=== PATIENT | male | born 1960 | race Caucasian/White ===

== ENCOUNTER 2017-07-29 14:18 | Inpatient (IN) | payer OTHER ==
[~2017-07-29] VITALS: Ht 162.6 cm; Wt 83.6 kg
[2017-07-29 16:02] LABS: BASOPHIL % 0.5 % (0-2); PLATELET COUNT 262 x10^3mcL (130-400); RED CELL DISTRIBUTION WIDTH 13.7 % (11.5-14.5)
[2017-07-29 16:16] LABS: CALCIUM 9.2 mg/dL (8.5-10.1); CARBON DIOXIDE 27.5 mmol/L (21-32); CHLORIDE SERUM 102 mmol/L (98-107); CREATININE SERUM 1.2 mg/dL (0.7-1.3); GFR1 > 60 mL/min; GLUCOSE SERUM 106 mg/dL (74-106); POTASSIUM SERUM 4.7 mmol/L (3.5-5.1); SODIUM SERUM 141 mmol/L (136-145)
[2017-07-29 16:21] LABS: ALBUMIN 4.4 g/dL (3.4-5.0); ALKALINE PHOSPHATASE 122 U/L (46-116); ALT/SGPT 27 U/L (16-63); AST/SGOT 20 U/L (15-37); BILIRUBIN TOTAL 0.7 mg/dL (0.20-1.00); LIPASE 147 IU/L (73-393)
[2017-07-29 17:12] LABS: UA SPECIFIC GRAVITY 1.025 (1.005-1.035); microscopic required? YES; urine erythrocyte NEGATIVE (NEGATIVE)
[2017-07-29] MEDS ORDERED: LIPITOR40 MG (17:49)
[2017-07-29] MEDS ORDERED: METFORMIN HYDR500 M1 (17:49)
[2017-07-29] MEDS ORDERED: FLUOXETINE40 MG (17:49)
[2017-07-29] MEDS ORDERED: LISINOPRIL2.5 MG (17:50)
[2017-07-29] MEDS ORDERED: L40I (17:50)
[2017-07-29 18:31] LABS: AMPHETAMINE QUAL UR POSITIVE (NEG <=1000)
[2017-07-29] MEDS ORDERED: [UNRECOGNIZED DRUG - OTHER] (18:31)
[2017-07-29 18:36] LABS: PHOSPHOROUS 2.7 mg/dL (2.5-4.9)
[2017-07-29 18:41] LABS: CHOLESTEROL/HDL RATIO 2.8
[2017-07-29 19:18] VITALS: BP 151/89
[2017-07-29 19:24] VITALS: BP 151/83
[2017-07-29] MEDS ORDERED: METFORMIN HCL500 MG PO (20:29)
[2017-07-29] MEDS ORDERED: ATORVASTATIN CA40 M1 PO (20:31)
[2017-07-29] MEDS ORDERED: POTASSIUM CHLOR8 ME1 PO (20:31)
[2017-07-29] MEDS ORDERED: VITAMIN D50000 I4 PO (20:32)
[2017-07-29] MEDS ORDERED: FUROSEMIDE40 MG PO (20:33)
[2017-07-29] MEDS ORDERED: CARVEDILOL3.125 M1 PO (20:33)
[2017-07-29] MEDS ORDERED: FLUOXETINE40 MG PO (20:34)
[2017-07-29] MEDS ORDERED: ZESTRIL20 MG PO (20:35)
[2017-07-29 21:09] VITALS: BP 160/87
[2017-07-30 05:24] VITALS: BP 122/74
[2017-07-30 06:41] LABS: CALCIUM 8.6 mg/dL (8.5-10.1); CARBON DIOXIDE 28.1 mmol/L (21-32); CHLORIDE SERUM 107 mmol/L (98-107); CREATININE SERUM 1.2 mg/dL (0.7-1.3); GFR1 > 60 mL/min; GLUCOSE SERUM 76 mg/dL (74-106); SODIUM SERUM 143 mmol/L (136-145)
[2017-07-30 06:44] LABS: BASOPHIL % 0.7 % (0-2); PLATELET COUNT 205 x10^3mcL (130-400); RED CELL DISTRIBUTION WIDTH 14.2 % (11.5-14.5)
[2017-07-30 09:25] VITALS: BP 103/58
[2017-07-30 11:05] VITALS: Ht 162.6 cm; Wt 83.6 kg
[2017-07-30 12:40] VITALS: BP 133/87
[2017-07-30 17:10] VITALS: BP 121/70
[2017-07-30 21:06] VITALS: BP 120/62
[2017-07-31 05:32] VITALS: BP 122/62
[2017-07-31 07:02] LABS: BASOPHIL % 0.6 % (0-2); PLATELET COUNT 180 x10^3mcL (130-400); RED CELL DISTRIBUTION WIDTH 13.9 % (11.5-14.5)
[2017-07-31 07:12] LABS: CALCIUM 7.8 mg/dL (8.5-10.1); CARBON DIOXIDE 24.9 mmol/L (21-32); CHLORIDE SERUM 108 mmol/L (98-107); CREATININE SERUM 1.1 mg/dL (0.7-1.3); GFR1 > 60 mL/min; GLUCOSE SERUM 105 mg/dL (74-106); MAGNESIUM 1.8 mg/dL (1.8-2.4); PHOSPHOROUS 2.8 mg/dL (2.5-4.9); POTASSIUM SERUM 3.7 mmol/L (3.5-5.1); SODIUM SERUM 141 mmol/L (136-145)
[2017-07-31 10:26] VITALS: BP 122/76
[2017-07-31 13:10] VITALS: BP 124/70
== END 2017-07-31 14:30 | disposition left against medical advice (07) | DRG 52 ==
LOC: ED 14:18 → DU 17:45
PROVIDERS: Emergency Medicine; Family Medicine
DX: G92 Toxic encephalopathy (principal); N17.0 Acute kidney failure with tubular necrosis; E11.65 Type 2 diabetes mellitus with hyperglycemia; G90.8 Other disorders of autonomic nervous system; M62.82 Rhabdomyolysis; I69.351 Hemiplegia and hemiparesis following cerebral infarction affecting right dominant side; I10 Essential (primary) hypertension; E78.5 Hyperlipidemia, unspecified; E78.00 Pure hypercholesterolemia, unspecified; F32.9 Major depressive disorder, single episode, unspecified; F15.129 Other stimulant abuse with intoxication, unspecified
CPT/HCPCS: 36600; 82962; 83880; 97110-GP; J3490; J8597; Q0092